=== PATIENT | male | born 1975 | race Caucasian/White ===

== ENCOUNTER → 2020-07-27 | Outpatient (CLI) | payer BC ==
--- NOTE | 2020-07-27 10:35 | Diagnostic Imaging Report ---
Clinical indication: Patient complains headache this started about a month ago. No injury. Exam: Axial CT scan of the brain without IV contrast with coronal and sagittal reformatted images. Auto Exposure Controls were utilized during the CT exam to meet ALARA standards for radiation dose reduction. Comparison: None. Findings: There is no evidence of acute cerebral infarct, intracranial hemorrhage, or gross mass effect. The brain parenchymal volume appears appropriate for patient's age. There is normal sandoval-white matter distinction. There is no significant midline shift or herniation. There is no evidence of hydrocephalus. The basal cisterns are unremarkable. The skull, extracranial soft tissue, and orbits are unremarkable. There is mild mucosal thickening involving right maxillary sinus. Temporal bones show no significant abnormality. Impression: There is mild right maxillary sinus disease. Otherwise, unremarkable CT scan of the brain. Dictated by: Dictated on workstation # [id number]
== END ==
LOC: RAD FS 10:05
PROVIDERS: ATTEND Family Medicine
DX: J32.0 Chronic maxillary sinusitis (principal)
CPT/HCPCS: 70450

== ENCOUNTER 2022-06-08 07:08 | Outpatient (CLI) | payer BC ==
[~2022-06-08] VITALS: Ht 200.6 cm; Wt 117.3 kg
== END 2022-06-08 09:32 | disposition home or self-care (01) ==
LOC: PREOP 07:08
PROVIDERS: ATTEND Surgery
DX: Z01.818 Encounter for other preprocedural examination (principal)

== ENCOUNTER 2022-06-16 08:23 | Day surgery (SDC) | payer BC ==
[~2022-06-16] VITALS: Ht 200.6 cm; Wt 117.3 kg
[2022-06-16] VITALS (7 sets, daily range): BP systolic 121–137; BP diastolic 82–85
[2022-06-16] MEDS ORDERED: LACTATED RINGERS 1,000 ML IV STA (08:28)
[2022-06-16] MEDS ORDERED: HURRICAINE EXT TUBE (BENZOCAINE) XX PRN (08:30)
[2022-06-16] MEDS ORDERED: LISI10TA25 PO (08:42)
[2022-06-16] MEDS ORDERED: CITA20TA9 PO (08:42)
[2022-06-16] MEDS ORDERED: ATOR10TA66 PO (08:42)
[2022-06-16] MEDS ORDERED: HYDR25TA4 PO (08:42)
[2022-06-16] MEDS ORDERED: GLUC1AUT2 SQ (08:42)
[2022-06-16] MEDS ORDERED: LISI20TA26 PO (08:42)
[2022-06-16] MEDS ORDERED: MIDAZOLAM 2 MG/2 ML (VERSED) VIAL ONE (08:59)
[2022-06-16] MEDS ORDERED: PROPOFOL INJECTION 50 ML IV ONE ×2 (08:59→10:04)
[2022-06-16] MEDS ORDERED: DAPA1TAB4 PO (09:03)
--- NOTE | 2022-06-16 09:16 | Progress Note-Pre Operative ---
Pre-Operative Progress Note Date of Available H&P: Jun 07, 2022 Date H&P Reviewed: June 16, 2022 Time H&P Reviewed: 09:11 History & Physical: H&P Reviewed, Patient Examed, No changes noted Pre-Operative Diagnosis: Chronic Reflux, screening ALEX CAVANAUGH DO June 16, 2022 09:16
--- NOTE | 2022-06-16 10:10 | Progress Note-Post Operative ---
Post-Operative Progess Note Surgeon (s)/Telegraphic Typewriter Operator (s) Surgeon ALEX CAVANAUGH DO Telegraphic Typewriter Operator: none Pre-Operative Diagnosis Chronic Reflux, screening Post-Operative Diagnosis Gastritis with bleed Hiatal hernia Esophagitis Gastric Mass Rectal polyp int hemorrhoids poor prep Procedure & Operative Findings Date of Procedure 06/16/22 Procedure Performed/Findings EGD with biopsy Colonoscopy with snare PROCEDURE NOTE: After informed consent was obtained, the patient was brought to the endoscopy suite, placed in bed in left lateral decubitus position. He was administered IV sedation by the LINE SERVICE PERSON who then monitored vitals the entire time, heart rate, blood pressure and pulse ox and the scope was inserted down the mouth through the esophagus into the stomach. On the way down, noted some mild esophagitis, took a picture, pushed into the stomach, and immediately noted some gastritis and some blood. Then pushed past the antrum into the duodenum; duodenum looked good. Pulled back and did a biopsy of the antrum and then a biopsy of the body of the stomach. Next, retroflexed the scope, saw very small sliding hiatal hernia and a mass in the stomach, took a picture of both of these. I then did a biopsy of the mass, pulled the scope into the GE junction, took another picture of the hiatal hernia and then did a biopsy of the GE junction. Pushed the scope back into the stomach, suctioned all the air out of the stomach. At this point pulled the scope up the esophagus and out the mouth. Switched camera, switched gloves, went down below and started the colonoscopy. Pushed all the way to about 150 cm and pushed into the cecum, took a picture of appendiceal orifice and noted the ileocecal valve. Unfortunately, pt had a lot of retained fecal material and I was unable to suction all of it up. From the cecum, slowly withdrew the scope insufflating to look circumferentially at the stephens, up the ascending colon to the hepatic flexure, then down the transverse colon, splenic flexure, into the descending colon down in the sigmoid and then into the rectum. Here after suctioning up some of the fecal material I found a polyp and removed it with the snare. In the vault I retroflexed the scope and took a picture of the internal hemorrhoids. The patient tolerated the procedure and he recovered in the endoscopy suite. Recommended for repeat colonoscopy in 10 years Anesthesia Type IV sedation by LINE SERVICE PERSON Estimated Blood Loss Estimated blood loss (mL): scant Specimens/Packing Specimens Removed antral bx body of stomach bx Gastric mass bx GE jxn bx rectal polyp ALEX CAVANAUGH DO June 16, 2022 10:10
[2022-06-16] MEDS ORDERED: PANT40TA2 PO (10:12)
[2022-06-16] MEDS ORDERED: SUCR1TAB36 PO (10:12)
--- NOTE | 2022-06-16 10:13 | Endoscopy Discharge Instruct ---
Endo Procedure/Findings Findings 1.: Gastritis 2.: Hiatal Hernia, Other Findings (Gastric mass) 3.: Polyp 4.: Internal Hemorrhoids Discharge Instructions - Activity: You might feel a little sleepy until tomorrow. This is due to the medicine you received to relax you. Until tomorrow, you should: NOT drive a car, operate machinery or power tools. NOT drink any alcoholic beverages. NOT make any important decisions or sign importortant papers. Do not return to work until tomorrow, unless otherwise instructed. Resume previous activities tomorrow. Diet: Start by taking liquids. If you tolerate liquids, advance to solid food. 1.: EGD in 1 year 2.: Colonoscopy in 1 year Notify Physician - If you experience excessive bleeding, unusual abdominal pain, fever, or chest pain, contact your doctor immediately. Follow-Up: Other Follow up in my office in one week ALEX CAVANAUGH DO June 16, 2022 10:13
--- NOTE | 2022-06-16 12:13 | Anesthesia-General Post-Op ---
MAC Patient Condition Mental Status/LOC: Same as Preop Cardiovascular: Satisfactory Nausea/Vomiting: Absent Respiratory: Satisfactory Pain: Controlled Complications: Absent Post Op Complications Complications None Follow Up Care/Instructions Patient Instructions None needed. Anesthesiology Discharge Order Discharge Order Patient is doing well, no complaints, stable vital signs, no apparent adverse anesthesia problems. No complications reported per nursing. JOSELIN LEE CRNA June 16, 2022 12:13
== END 2022-06-16 10:50 | disposition home or self-care (01) ==
LOC: ENDO 08:23
PROVIDERS: ATTEND Surgery
DX: Z12.11 Encounter for screening for malignant neoplasm of colon (principal); K21.00 Gastro-esophageal reflux disease with esophagitis, without bleeding; K29.51 Unspecified chronic gastritis with bleeding; K31.89 Other diseases of stomach and duodenum; K44.9 Diaphragmatic hernia without obstruction or gangrene; K62.1 Rectal polyp; K64.8 Other hemorrhoids; Z28.310 Unvaccinated for COVID-19
CPT/HCPCS: 82947; 88305